=== PATIENT | female | born 1940 | race Two or more races ===

== ENCOUNTER 2017-08-15 14:35 | Observation (INO) | payer MEDICARE, OTHER, MEDICAID ==
[2017-08-15 15:58] LABS: ADD MAN DIFF? NO
[2017-08-15 16:01] LABS: WHITE BLOOD COUNT 6.1 10^3/ul (4.8-10.8)
[2017-08-15 16:01] LABS: BASOPHILS % 0.7 % (0.0-2.0); EOSINOPHILS # 0.1 10^3/ul (0.0-0.5); EOSINOPHILS % 1.1 % (0.0-7.0); HEMATOCRIT 33.2 % (37.0-47.0); LYMPHOCYTES # 1.3 10^3/ul (0.8-2.9); LYMPHOCYTES % 21.3 % (15.0-51.0); MEAN CORPUSCULAR HEMOGLOBIN 32.9 pg (29.0-33.0); MEAN CORPUSCULAR HGB CONC 33.1 g/dl (32.0-37.0); MEAN CORPUSCULAR VOLUME 99.4 fl (82.0-101.0); MEAN PLATELET VOLUME 9.9 fl (7.4-10.4); MONOCYTE # 0.4 10^3/ul (0.3-0.9); NEUTROPHIL # 4.2 10^3/ul (1.6-7.5); NEUTROPHILS % 68.9 % (39.0-77.0); PLATELET COUNT 313 10^3/UL (140-415); RED BLOOD COUNT 3.34 10^6/ul (4.20-5.40); RED CELL DISTRIBUTION WIDTH 13.7 % (11.5-14.5)
[2017-08-15 16:23] LABS: ANION GAP 12 (8-16); BLOOD UREA NITROGEN 33 mg/dl (7-20); CALCIUM 9.3 mg/dl (8.4-10.2); CARBON DIOXIDE 27 mmol/L (21-31); CHLORIDE 108 mmol/L (97-110); CREATININE 1.07 mg/dl (0.44-1.00); GLUCOSE 114 mg/dl (70-220); POTASSIUM 4.4 mmol/L (3.5-5.1); SODIUM 143 mmol/L (135-144)
[2017-08-15 16:36] LABS: TROPONIN-I < 0.012 ng/ml (0.00-0.12)
[2017-08-15] MEDS ORDERED: LORAZEPAM 2 MG INJ IV (17:30)
[2017-08-15] MEDS ORDERED: morphine 2 MG INJ IV (17:30)
[2017-08-15] MEDS ORDERED: ACETAMINOPHEN 325 MG TAB PO (17:30)
[2017-08-15] MEDS ORDERED: ALBUTEROL/IPRATROPIUM (NEB) 3 ML AMP HHN (17:30)
[2017-08-15] MEDS ORDERED: ONDANSETRON 4 MG INJ IV (17:30)
[2017-08-15] MEDS ORDERED: HYDROCODONE/APAP (5/325) TAB PO (17:30)
[2017-08-15] MEDS ORDERED: MAGNESIUM HYDROXIDE 30ML CUP PO (17:30)
[2017-08-15] MEDS ORDERED: METOCLOPRAMIDE 10 MG TAB PO (17:30)
[2017-08-15] MEDS ORDERED: hydrALAzine 20 MG INJ IV (17:30)
[2017-08-15] MEDS ORDERED: NACL 0.9% 3 ML SYG IV (17:30)
[2017-08-15] MEDS ORDERED: NA PHOSPHATE/BIPHOS 133 ML ENEMA PR (17:30)
[2017-08-15] MEDS ORDERED: DOCUSATE SODIUM 100 MG CAP PO (17:30)
[2017-08-15] MEDS: SOD CHLORIDE 0.45% 1,000 ML IV (17:55)
[2017-08-15 18:10] LABS: FREE T4 (FREE THYROXINE) 1.01 ng/dl (0.78-2.44)
[2017-08-15] MEDS ORDERED: GLUCAGON 1 MG INJ IM (19:30)
[2017-08-15] MEDS ORDERED: GLUCOSE GEL 15 GRAM TUBE PO ×2 (19:30)
[2017-08-15] MEDS ORDERED: GLUCOSE GEL 15 GRAM TUBE BUCCAL (19:30)
[2017-08-15] MEDS ORDERED: DEXTROSE 50% 50 ML SYRINGE IV ×2 (19:30)
[2017-08-15] MEDS: INSULIN ASPART [NOVOLOG] 3 ML PEN SC (22:40)
[2017-08-15] MEDS: APIXABAN 5 MG TABLET PO (22:56)
[2017-08-15] MEDS: ATORVASTATIN 10 MG TAB PO (22:56)
[2017-08-15] MEDS: SALMETEROL/FLUTICASONE 250/50 INHA INH (23:31)
[2017-08-15] MEDS: NICOTINE (14 MG/24 HR) PATCH TRANSDERM (23:31)
[2017-08-16] MEDS: INSULIN ASPART [NOVOLOG] 3 ML PEN SC ×6 (01:14→20:39)
[2017-08-16] MEDS ORDERED: ACCU-CHEK XX (02:00)
[2017-08-16] MEDS: SOD CHLORIDE 0.45% 1,000 ML IV ×2 (05:57→20:04)
[2017-08-16] MEDS: PANTOPRAZOLE (EC) 40 MG TAB PO (05:57)
[2017-08-16 07:48] LABS: ADD MAN DIFF? NO
[2017-08-16 07:52] LABS: BASOPHILS % 0.5 % (0.0-2.0); EOSINOPHILS # 0.1 10^3/ul (0.0-0.5); EOSINOPHILS % 1.2 % (0.0-7.0); HEMATOCRIT 31.8 % (37.0-47.0); HEMOGLOBIN 10.6 g/dl (12.0-16.0); LYMPHOCYTES # 1.8 10^3/ul (0.8-2.9); LYMPHOCYTES % 27.7 % (15.0-51.0); MEAN CORPUSCULAR HEMOGLOBIN 33.1 pg (29.0-33.0); MEAN CORPUSCULAR HGB CONC 33.3 g/dl (32.0-37.0); MEAN CORPUSCULAR VOLUME 99.4 fl (82.0-101.0); MEAN PLATELET VOLUME 10.4 fl (7.4-10.4); MONOCYTE # 0.5 10^3/ul (0.3-0.9); MONOCYTES % 7.9 % (0.0-11.0); NEUTROPHIL # 4.1 10^3/ul (1.6-7.5); NEUTROPHILS % 62.1 % (39.0-77.0); PLATELET COUNT 304 10^3/UL (140-415); RED CELL DISTRIBUTION WIDTH 13.6 % (11.5-14.5)
[2017-08-16 07:52] LABS: WHITE BLOOD COUNT 6.6 10^3/ul (4.8-10.8)
[2017-08-16 08:07] LABS: HEMOGLOBIN A1C 5.6 % (0-5.9)
[2017-08-16 08:12] LABS: ANION GAP 12 (8-16); BLOOD UREA NITROGEN 25 mg/dl (7-20); CALCIUM 9.1 mg/dl (8.4-10.2); CARBON DIOXIDE 27 mmol/L (21-31); CHLORIDE 106 mmol/L (97-110); CREATININE 0.82 mg/dl (0.44-1.00); GLUCOSE 95 mg/dl (70-220); MAGNESIUM 1.9 mg/dl (1.7-2.5); POTASSIUM 3.7 mmol/L (3.5-5.1); SODIUM 141 mmol/L (135-144)
[2017-08-16 08:16] LABS: CHOLESTEROL 126 mg/dl (100-200)
[2017-08-16 08:16] LABS: CHOL/HDL RATIO 2.8 RATIO; HDL CHOLESTEROL 45 mg/dl (33-92); LDL CHOLESTEROL,CALCULATED 62 mg/dl; TRIGLYCERIDES 95 mg/dl (0-149)
[2017-08-16] MEDS: FENOFIBRATE 145 MG TAB PO (08:58)
[2017-08-16] MEDS: ASPIRIN (EC) 81 MG TAB PO (08:58)
[2017-08-16] MEDS: APIXABAN 5 MG TABLET PO ×2 (08:58→20:38)
[2017-08-16] MEDS: NICOTINE (14 MG/24 HR) PATCH TRANSDERM (08:59)
[2017-08-16] MEDS: SALMETEROL/FLUTICASONE 250/50 INHA INH ×2 (08:59→20:39)
[2017-08-16] MEDS ORDERED: ASPIRIN (EC) 325 MG TAB PO (09:00)
[2017-08-16 12:34] LABS: ADD UMIC NO; UR ASCORBIC ACID NEGATIVE (NEGATIVE); UR BACTERIA FEW /HPF (NONE SEEN); UR BILIRUBIN (Dip) NEGATIVE (NEGATIVE); UR BLOOD (Dip) NEGATIVE (NEGATIVE); UR CLARITY SLIGHTLY CLOUDY (CLEAR); UR COLOR YELLOW (YELLOW); UR GLUCOSE (Dip) NEGATIVE (NEGATIVE); UR KETONES (Dip) NEGATIVE (NEGATIVE); UR LEUKOCYTE ESTERASE (Dip) NEGATIVE Leu/ul (NEGATIVE); UR MUCUS FEW /HPF (NONE SEEN); UR NITRITE (Dip) NEGATIVE (NEGATIVE); UR RBC 2 /HPF (0-5); UR SPECIFIC GRAVITY (Dip) 1.017 (1.003-1.030); UR TOTAL PROTEIN (Dip) NEGATIVE (NEGATIVE); UR UROBILINOGEN (Dip) NEGATIVE (NEGATIVE); UR WBC 1 /HPF (0-5)
[2017-08-16] MEDS: ATORVASTATIN 10 MG TAB PO (20:38)
[2017-08-17] MEDS: ACCUCHECK AT 2AM (Patients on SS coverage) XX (01:50)
[2017-08-17] MEDS: PANTOPRAZOLE (EC) 40 MG TAB PO (05:48)
[2017-08-17] MEDS: INSULIN ASPART [NOVOLOG] 3 ML PEN SC ×3 (07:55→17:37)
[2017-08-17 08:27] LABS: ADD MAN DIFF? NO
[2017-08-17 08:29] LABS: BASOPHILS % 0.5 % (0.0-2.0); EOSINOPHILS # 0.1 10^3/ul (0.0-0.5); EOSINOPHILS % 1.9 % (0.0-7.0); HEMATOCRIT 32.6 % (37.0-47.0); HEMOGLOBIN 10.8 g/dl (12.0-16.0); LYMPHOCYTES # 1.2 10^3/ul (0.8-2.9); LYMPHOCYTES % 18.9 % (15.0-51.0); MEAN CORPUSCULAR HEMOGLOBIN 32.6 pg (29.0-33.0); MEAN CORPUSCULAR HGB CONC 33.1 g/dl (32.0-37.0); MEAN CORPUSCULAR VOLUME 98.5 fl (82.0-101.0); MEAN PLATELET VOLUME 10.2 fl (7.4-10.4); MONOCYTE # 0.5 10^3/ul (0.3-0.9); MONOCYTES % 8.3 % (0.0-11.0); NEUTROPHIL # 4.5 10^3/ul (1.6-7.5); NEUTROPHILS % 69.9 % (39.0-77.0); PLATELET COUNT 302 10^3/UL (140-415); RED BLOOD COUNT 3.31 10^6/ul (4.20-5.40); RED CELL DISTRIBUTION WIDTH 13.4 % (11.5-14.5)
[2017-08-17 08:29] LABS: WHITE BLOOD COUNT 6.4 10^3/ul (4.8-10.8)
[2017-08-17 08:45] LABS: ANION GAP 13 (8-16); BLOOD UREA NITROGEN 22 mg/dl (7-20); CALCIUM 9.2 mg/dl (8.4-10.2); CARBON DIOXIDE 27 mmol/L (21-31); CHLORIDE 107 mmol/L (97-110); CREATININE 0.85 mg/dl (0.44-1.00); GLUCOSE 102 mg/dl (70-220); POTASSIUM 3.5 mmol/L (3.5-5.1); SODIUM 143 mmol/L (135-144)
[2017-08-17] MEDS: FENOFIBRATE 145 MG TAB PO (09:28)
[2017-08-17] MEDS: NICOTINE (14 MG/24 HR) PATCH TRANSDERM (09:28)
[2017-08-17] MEDS: SALMETEROL/FLUTICASONE 250/50 INHA INH (09:28)
[2017-08-17] MEDS: APIXABAN 5 MG TABLET PO (09:28)
[2017-08-17] MEDS: SOD CHLORIDE 0.45% 1,000 ML IV (09:28)
[2017-08-17] MEDS: ASPIRIN (EC) 81 MG TAB PO (09:28)
== END 2017-08-17 18:45 | disposition home or self-care (01) ==
LOC: TEL 21:05 → E/R 14:35 → TEL 08-16 20:07
DX: R55 Syncope and collapse (principal); I10 Essential (primary) hypertension; E11.9 Type 2 diabetes mellitus without complications; I48.0 Paroxysmal atrial fibrillation; E78.00 Pure hypercholesterolemia, unspecified; F17.200 Nicotine dependence, unspecified, uncomplicated; Z96.653 Presence of artificial knee joint, bilateral; Z79.84 Long term (current) use of oral hypoglycemic drugs
CPT/HCPCS: 36415; 70450; 70551; 71045; 80048; 80061; 81001; 81003; 82962; 83036; 83735; 84100; 84439; 84443; 84484; 85025; 92610; 93005; 93306; 93880; 94660; 97161; 99285-25; G0378